=== PATIENT | female | born 1970 | race Caucasian/White ===

== ENCOUNTER 2024-12-27 16:52 | Observation (INO) | payer SELFPAY ==
[2024-12-27] MEDS ORDERED: Midazolam 1 MG/ML 2 ML SDV ONE (17:16)
[2024-12-27] MEDS ORDERED: Propofol 200 MG/20 ML SDV ONE ×4 (17:16→18:35)
[2024-12-27] MEDS ORDERED: fentaNYL 250 MCG/5 ML SDV ONE (17:16)
[2024-12-27] MEDS ORDERED: Ondansetron 4 MG/2 ML SDV ONE (17:17)
[2024-12-27] MEDS ORDERED: Rocuronium 50 MG/5 ML Vial ONE ×2 (17:17→18:41)
[2024-12-27] MEDS ORDERED: dexmedeTOMIDine HCl 200 MCG/2 ML SDV ONE (17:17)
[2024-12-27] MEDS ORDERED: Dexamethasone 4 MG/ML 5 ML MDV ONE (17:17)
[2024-12-27] MEDS ORDERED: Lidocaine 1% 5 ML VIAL ONE (17:17)
[2024-12-27] MEDS ORDERED: HYDROmorphone 0.5 MG/0.5 ML Syringe ONE ×2 (18:01→18:30)
[2024-12-27] MEDS: Piperacillin/Tazobactam 4.5 GM in Sodium Chloride 0.9% 100 ML IV ONE (18:26)
[2024-12-27] MEDS: Scopalamine 1mg/3day Transdermal Patch TOP ONE (18:41)
[2024-12-27] MEDS ORDERED: Sugammadex Sodium 200 MG/2 ML VIAL IV ONE (18:46)
[2024-12-27] MEDS ORDERED: Ketorolac 30 MG/ML SDV ONE (18:46)
[2024-12-27] MEDS: Lidocaine 1% 30 ML SDV ONE (19:19)
[2024-12-27] MEDS: Bupivacaine 0.5% 30 ML SDV ONE (19:19)
[2024-12-27] MEDS: EPINEPHrine 1 MG/ML SDV ONE (19:19)
[2024-12-27] MEDS ORDERED: Ondansetron 4 MG Tab.DIS PO PRN (20:29)
[2024-12-27] MEDS ORDERED: oxyCODONE 5 MG Tab PO PRN (20:29)
[2024-12-27] MEDS ORDERED: Lactated Ringers 1,000 ML IV ONE (20:30)
[2024-12-27] MEDS ORDERED: Lactated Ringers 1,000 ML IV SCH (20:30)
[2024-12-27] MEDS ORDERED: HYDROmorphone 0.5 MG/0.5 ML Syringe IVPUSH PRN (20:33)
[2024-12-27] MEDS ORDERED: fentaNYL 100 MCG/2 ML SDV IVPUSH PRN (20:33)
[2024-12-27] MEDS ORDERED: Ondansetron 4 MG/2 ML SDV IVPUSH PRN (20:33)
[2024-12-27] MEDS: Ibuprofen 600 MG Tab PO SCH (21:32)
[2024-12-27] MEDS: Acetaminophen Soln 650 MG/20.3 ML UD Cup PO ONE (21:33)
[2024-12-27] MEDS: Insulin Lispro 100 Unit/ML 3 ML KwikPen SUBCUT SCH (22:16)
[2024-12-27] MEDS: Piperacillin/Tazobactam 4.5 GM in Sodium Chloride 0.9% 100 ML IV SCH (22:43)
[2024-12-27] MEDS: Sodium Chloride 0.9% 1,000 ML IV SCH (22:43)
[2024-12-27] MEDS: Acetaminophen 325 MG Tab PO SCH (22:45)
[2024-12-28] MEDS: Heparin Sodium 5,000 Units/ML Vial SUBCUT SCH (07:58)
== END 2024-12-28 19:40 | disposition home or self-care (01) ==
LOC: JD.ED 16:52 → JD.SDS 18:25 → JD.MS 20:29
PROVIDERS: ADMIT Surgery; ATTEND Surgery
DX: K35.33 Acute appendicitis with perforation, localized peritonitis, and gangrene, with abscess (principal); K42.9 Umbilical hernia without obstruction or gangrene; E11.9 Type 2 diabetes mellitus without complications; E66.9 Obesity, unspecified
CPT/HCPCS: 44970; 82947; 94760; A9270; J0171; J0665; J1100; J1644; J1815; J1885; J2003; J2250; J2405; J2543; J2704; J3010; J7030; J7120; 00840; J3490